=== PATIENT | female | born 1995 | race Caucasian/White ===

== ENCOUNTER 2017-09-11 13:39 | Emergency (ER) | payer BC ==
[2017-09-11] MEDS ORDERED: ISOVUE-370 76%-LOCM 1 ML ONE (14:24)
[2017-09-11 14:46] LABS: Mean Corpuscular HGB CONC 34.1 g/dL (32.0-36.0); Mean Corpuscular Hemoglobin 33.4 pg (27.0-31.0); Mean Corpuscular Volume 97.8 fl (81.0-99.0); Mean Platelet Volume 5.5 fL (7.4-10.4); Platelet Count 322 thou/uL (130-400); RBC Distribution Width 11.1 % (11.5-14.5); White Blood Cell (WBC) Count 16.4 thou/uL (4.8-10.8)
[2017-09-11 15:01] LABS: Band 31 % (5-11); Lymphocytes 1 % (21-51); MDiff Complete? YES; Metamyelocyte 1 % (0-0); Monocytes 1 % (0-10); Neutrophil 65 % (42-75); PLT Morphology Comment Appears Adequate; RBC Morphology Normal; Reactive Lymphocytes 1 % (0-10); Vacuoles SLIGHT
[2017-09-11 15:05] LABS: ALT (SGPT) 38 U/L (8-55); AST (SGOT) 31 U/L (5-34); Albumin 5.1 g/dL (3.5-5.0); Alkaline Phosphatase 62 U/L (40-150); Anion Gap 18 mmol/L (10-20); BUN (Urea Nitrogen) 14 mg/dL (7.0-18.7); Bilirubin, Total 0.6 mg/dL (0.2-1.2); Calc. Creatinine Clearance 0 mL/min (70-130); Calcium 11.1 mg/dL (7.8-10.44); Carbon Dioxide 27 mmol/L (22-29); Chloride 103 mmol/L (98-107); Estimated GFR-MDRD 81; Globulin 3.1 g/dL (2.4-3.5); Glucose 148 mg/dL (70-105); Potassium 5.8 mmol/L (3.5-5.1); Protein, Total 8.2 g/dL (6.0-8.3); Sodium 142 mmol/L (136-145)
[2017-09-11] MEDS ORDERED: Ondansetron ODT 4 MG TAB ONE (15:09)
[2017-09-11 15:14] LABS: Bilirubin Small (Negative); Blood, Urine Negative (Negative); Clarity TURBID (Clear); Glucose, Urine (Dipstick) Negative (Negative); Leukocyte Trace (Negative); Nitrite Negative (Negative); Protein, Urine (Dipstick) 30 mg/dL (Neg-Trace); Urobilinogen 0.2 mg/dL (0.2-1.0)
[2017-09-11 15:15] LABS: Bacteria/HPF 1+ HPF (None Seen); RBC/HPF None Seen HPF (0-3); Yeast-AUWi Flag 22.5 (0-25.0)
[2017-09-11 15:16] LABS: Pathc Cast-AUWi Flag 6.97 (0-2.49)
[2017-09-11 15:18] LABS: Pregnancy Test - Urine (BHCG) Negative (Negative); Pregu Control Background? CLEAR/WHITE (CLR/WHITE); Pregu Control Bar Appear? YES (CONTROL BAR); Specific Gravity 1.043 (1.002-1.036); Specific Gravity, Urine 1.043 (1.002-1.036)
[2017-09-11 15:29] LABS: Hyaline Casts/LPF 0-3 HYALINE CAST LPF (0-3 Hyaline); Other Casts/LPF None Seen LPF (0-3 Hyaline)
[2017-09-11 15:30] LABS: Crystals/HPF 2+ CA OXALATE HPF (Negative); Renal Epithelial None Seen HPF (0-3); Transitional Epithelial NONE SEEN HPF (0-3)
--- NOTE | 2017-09-11 16:37 | CT ---
CT ABDOMEN AND PELVIS: 09/11/2017 HISTORY: Diarrhea and vomiting with pain. COMPARISON: None. TECHNIQUE: Serial axial CT imaging is obtained at 5 mm intervals, from the lung bases through the pubic symphysi s, with IV contrast. Coronal reformatted imaging obtained. FINDINGS: The imaged lung bases are unremarkable. There is no free intraperitoneal air seen. There is nonspecific small volume free fluid layering within the right aspect of the inferior-posteri or pelvis. The liver, gallbladder, spleen, pancreas, and adrenal glands appear unremarkable. There is a subcentimeter hypodensity in the upper pole of the left kidney, measuring in the 6 mm rang e, too small to characterize. There is fluid density noted within the colon, specifically the descending colon through the rectum a nd portions of the ascending colon. In addition, there are multiple distal nondilated fluid-filled l oops of small bowel, primarily within the pelvis. No evidence for bowel inflammatory change. No evidence for bowel obstruction. The appendix is not discretely visualized, but no evidence for ri ght lower quadrant inflammatory change is seen to suggest acute appendicitis. The vascular structures appear patent, with no lymphadenopathy in the abdomen or pelvis. The osseous structures demonstrate no worrisome lytic or blastic lesions. IMPRESSION: There are multiple fluid-filled nondilated loops of small bowel within the pelvis, and there are scat tered areas of fluid density within the colon, as well. This suggests enteritis/diarrheal illness. No free intraperitoneal air or evidence of bowel obstruction is seen. POS: [id number]
== END 2017-09-11 17:24 | disposition home or self-care (01) ==
LOC: ERS 13:39
DX: K52.9 Noninfective gastroenteritis and colitis, unspecified (principal); Z79.52 Long term (current) use of systemic steroids
CPT/HCPCS: 36415; 74177; 80053; 81003; 81015; 81025; 85025; 87045; 87046; 87086; 87449; 87899; 96360; 96361; Q0162